=== PATIENT | female | born 1980 ===

== ENCOUNTER 2018-05-29 12:22 | Inpatient (IN) | payer MEDICAID, SELFPAY ==
[2018-05-29 12:43] VITALS: BMI 31.4
[2018-05-29] MEDS ORDERED: ceFAZolin 2 GM in Sodium Chloride 0.9% 100 ML IVPB ONE (12:44)
[2018-05-29] MEDS ORDERED: Oxytocin 30 UNIT 30 UNITS/500 ML BAG IV ONE ×2 (12:49→15:36)
[2018-05-29] MEDS: Lactated Ringer's 1,000 ML IV ONE ×2 (12:55→13:35)
[2018-05-29] MEDS ORDERED: ePHEDrine 50 mg/ml Inj ONE (13:22)
[2018-05-29] MEDS ORDERED: Morphine 1 mg/ml preservative-free Inj(Duramorph) ONE (13:22)
--- NOTE | 2018-05-29 13:22 | OBADHP ---
Datetime: 05/29/2018 13:08 Admit Comment, IP Provider: 37yo at 39 wks with history of intermittent tachycardia presents f or repeat csection today. Patient denies regular contractions, no vaginal bleeding or leakage of flui ds. movement present. Patient had echocardiogram on 05/28 which showed tachycardia and hyperdyna roseanne heart. HR today 105 and patient asymptomatic. Patient with UTI started Keflex. O negative s/p Rhogam GBS negative HIV and RPR- NR Glucola wnl A/P IUP at 39 wks with h/o previous csection x 2 --Initiate csection protocol --Patient for for repeat csection with BTL --Ancef 2gm IV now Pelvic Type - PN: Adequate Extremities - PN: Normal Abdomen - PN: Normal Back - PN: Normal Breast - PN: Normal Lungs - PN: Normal Heart - PN: Normal Thyroid - PN: Normal Neurologic - PN: Normal HEENT - PN: Normal General - PN: Normal IP Chief Complaint: Scheduled Section; Maternal discomfort Genitourinary Exam: Normal DTRs - PN: Normal IP Adm Impression: Term, intrauterine IP Admit Plan: Admit to unit; Initiate Section protocol
[2018-05-29] MEDS ORDERED: Sodium Chloride 0.9% 10 ML IV ONE (13:23)
[2018-05-29] MEDS ORDERED: OXYTOCIN/0.9 % NS 20 UNIT/1,000 ML BAG IV SCH (14:00)
[2018-05-29 14:12] LABS: BASO % 0.2 % (0.0-2.0); EOS # 0.1 K/uL (0.0-0.7); EOS % 0.9 % (0.0-4.0); LYMPH # 2.2 K/uL (1.0-4.3); LYMPH % 20.3 % (20.0-40.0); MEAN CORPUSCULAR HGB CONC 32.9 g/dL (33.0-37.0); MEAN PLATELET VOLUME 9.8 fl (7.2-11.7); MONO # 0.6 K/uL (0.0-0.8); MONO % 5.2 % (0.0-10.0); NEUT # 7.8 K/uL (1.8-7.0); NEUT % 73.4 % (50.0-75.0); NRBC % 0.1 % (0.0-0.0); RBC 4.63 Mil/uL (3.80-5.20); RED CELL DISTRIBUTION WIDTH 15.4 % (11.5-14.5); WHITE BLOOD COUNT 10.7 K/uL (4.8-10.8)
[2018-05-29] MEDS ORDERED: Cellulose Hemostat 2X3 Sheet ONE (15:43)
[2018-05-29] MEDS ORDERED: Propofol 10 mg/ml Inj (20 ML) ONE (15:59)
[2018-05-29] MEDS ORDERED: Oxycodone/Acetaminophen 5/325 mg Tab PO PRN ×3 (16:40→20:30)
[2018-05-29] MEDS ORDERED: Morphine 5 MG/ML SYRINGE IV PRN (16:46)
[2018-05-29] MEDS ORDERED: Naloxone 0.4 mg/ml Inj (Adult) IVP PRN ×2 (16:46→20:30)
[2018-05-29] MEDS ORDERED: DiphenhydrAMINE 50 mg/ml Inj IVP PRN ×2 (16:46→20:30)
--- NOTE | 2018-05-29 16:51 | OBDS ---
DELIVERY PERSONNEL Delivery Doctor: Sybil Lambert MD Food Consultant: JMcCartyRYvonne/MBorreoRN Anesthesiologist: Dr Boyer MATERNAL INFORMATION Delivery Anesthesia: Spinal Medications in Delivery: Ancef 2G Placenta Cultured: No Provider Comments: See operative report LABOR SUMMARY EDC: 06/04/2018 00:00 No. Babies in Womb: 1 Attempted: No Labor Anesthesia: None LABOR INFORMATION Reason for Induction: Not Applicable Oxytocin: N/A Group B Beta Strep: Negative Antibiotics # of Doses: Ancef 2 gram Antibiotics Time of Last Dose: 1420 Steroids Given: None Reason Steroids Not Administered: Not Applicable STAGES OF LABOR Stage 3 hrs: 0 Stage 3 min: 1 CSECTION DELIVERY Primary Indication: repeat C-S with BTL CSection Urgency: Elective CSection Incidence: Repeat Labor: N/A CSection Incision: Lower Uterine Transverse BABY A INFORMATION Infant Delivery Date/Time: 05/29/2018 15:23 Method of Delivery: Born in Route : No : N/A Forceps: N/A Vacuum Extraction: N/A Shoulder Dystocia : No SHOULDER DYSTOCIA BABY A Delivery Date/Time: 05/29/2018 15:23 PRESENTATION/POSITION BABY A Presentation: Cephalic PLACENTA INFORMATION BABY A Placenta Delivery Time : 05/29/2018 15:24 Placenta Method of Delivery: Manual Removal Placenta Status: Delivered SCORES BABY A Heart Rate 1 min: >100 bpm Resp Effort 1 min: Good Cry Reflex Irritability 1 min: Cough or Sneeze or Pulls Away Muscle Tone 1 min: Active Motion Color 1 min: Body [place], Extremities Blue Resuscitation Effort 1 min: N/A SCORE 1 MIN: 9 Heart Rate 5 min: >100 bpm Resp Effort 5 min: Good Cry Reflex Irritability 5 min: Cough or Sneeze or Pulls Away Muscle Tone 5 min: Active Motion Color 5 min: Body [place], Extremities Blue Resuscitation Effort 5 min: N/A SCORE 5 MIN: 9 INFORMATION BABY A Gestational Age at Delivery: 39.0 Gestational Status: Term Outcome : Liveborn Infant Condition : Stable Infant Sex: Male IDENTIFICATION/MEDS BABY A ID Band Number: [id number] ID Band Location: Left Leg; Left Arm Vitamin K Given : Not Given Erythromycin Given: Not Given WEIGHT/LENGTH BABY A Birthweight (gms): 3560 Infant Weight (lb): 7 Weight (oz): 14 CORD INFORMATION BABY A No. Cord Vessels: 3 Infant Cord pH Baby Arterial: n/a Cord pH Baby Venous: n/a Cord Blood Taken: Yes Banking/Donate Info: n/a
[2018-05-30] MEDS: Multivitamin With Minerals Tab PO SCH (08:59)
[2018-05-30] MEDS: Prenatal Multivit/Folic Acid/Iron Tab PO SCH (08:59)
[2018-05-30] MEDS ORDERED: Multivitamin With Minerals Tab PO SCH (09:00)
[2018-05-30] MEDS ORDERED: Prenatal Multivit/Folic Acid/Iron Tab PO SCH (09:00)
[2018-05-30] MEDS ORDERED: Influenza Vaccine (5 YR UP)/PF 60 MCG/0.5 ML SYR IM ONE (10:00)
[2018-05-30 15:00] LABS: HEMOGLOBIN 10.8 g/dL (12.0-16.0); MEAN CORPUSCULAR HEMOGLOBIN 27.8 pg (27.0-31.0); MEAN CORPUSCULAR HGB CONC 33.1 g/dL (33.0-37.0); RBC 3.87 Mil/uL (3.80-5.20); RED CELL DISTRIBUTION WIDTH 15.5 % (11.5-14.5)
[2018-05-30] MEDS: Oxycodone/Acetaminophen 5/325 mg Tab PO PRN (23:52)
[2018-05-31] MEDS: Prenatal Multivit/Folic Acid/Iron Tab PO SCH (08:43)
[2018-05-31] MEDS: Multivitamin With Minerals Tab PO SCH (08:43)
[2018-05-31] MEDS: Oxycodone/Acetaminophen 5/325 mg Tab PO PRN ×2 (08:44→21:36)
--- NOTE | 2018-05-31 18:09 | OBPPN ---
Datetime: 05/31/2018 07:47 PP Pain Prov: Within normal limits PP Nausea Prov: Denies PP Flatus Prov: Yes PP BM Prov: Yes PP Breasts Prov: Normal PP Heart Prov: Normal PP Lungs Prov: Normal PP Abdomen/Uterus Prov: Normal PP Lochia Prov: Normal PP Vulva/Perineum Prov: Not Done PP CVA Tenderness Prov: Not Done PP Extremities Prov: Normal PP C/S Incision Prov: Normal PP Progress Prov: Normal PP Impression Prov: Normal progression PP Plan Prov: Continue present management PP Progress Note Prov: S: 37 YO , POD2 s/p on 05/29/18. Patient is doing well this AM, family and baby present by bedside. Ambulating to the bathroom and in the hallway without difficultie s. Mild abdominal pain but well controlled with PO pain meds. Vaginal bleeding is like menses now. +f latus/+BM. Good PO intake. ROS: Denies chest pain, dyspnea, n/v/d/c, fever, chills, vomiting. O: VS: Vitals reviewed, afebrile GEN: looks comfortable, laying down in bed HEENT: EMOI, no pallor H: S1S2 no additional heart sounds L: Clear breath sounds b/l A: soft, fundus below umbilicus-firm, BS+, stoney and incision intact, no erythema, edema or exud ates noted. N: Awake and alert, preserved mood and effect. E: no edema noted, neg calf tenderness A/P: 37 YO @39wks IUP, s/p . Gave to a baby boy on 05/29/18. Doing well POD2. Desire s Circ for baby. -c/w diet as tolerated -SCDs and ambulating for DVT prophylaxis -cont pain management as needed -encouraged to ambulate as tolerated and continue Annamarie Olvera, PGY II OB Hospitalist on-call. With PGY2, I saw patient. Agree wih note... MAHNDO Rh neg - given Rhogam May 30 Vital Signs Provider PP: Reviewed; Within Normal Limits
[2018-06-01] MEDS: Prenatal Multivit/Folic Acid/Iron Tab PO SCH (08:47)
--- NOTE | 2018-06-01 10:15 | OBPPN ---
Datetime: 06/01/2018 06:11 PP Pain Prov: Within normal limits PP Nausea Prov: Denies PP Flatus Prov: Yes PP BM Prov: No PP Breasts Prov: Not Done PP Heart Prov: Normal PP Lungs Prov: Normal PP Abdomen/Uterus Prov: Normal PP Lochia Prov: Normal PP Vulva/Perineum Prov: Not Done PP CVA Tenderness Prov: Not Done PP Extremities Prov: Not Done PP C/S Incision Prov: Normal PP Impression Prov: Normal progression PP Plan Prov: Discharge PP Progress Note Prov: S: 37 yo female s/p on 05/29/2018 at 15:23. Pt. is seen and exa mined at bedside this AM. No overnight events. Pt reports mild abdominal pain, but well controlled wi th pain meds. D/c olsen, dressing removed, incision site healing well, no exudate seen, dry and intac t. No nausea, advised to advance diet as tolerated. Breast feeding and bottle feeding the baby. Lochi a is similar to menses volume. No bowel movement, but passing gas per rectum. Denies fever/chills, di arrhea, nausea/vomiting, chest pain, dyspnea, and dizziness. O: VS: stable GEN: NAD Cardio: S1S2, no murmurs Lungs: clear breath sounds b/l, no wheezing Abdomen: BS+, tenderness to palpation. Incision scar noted, well healing with no exudate seen, dry and intact. Uterus is firm and at the level of the umbilicus. EXT: No edema, calves nontender NEURO/PSYCH: AAOx3, no grossly focal deficits, preserved affect and mood. Assessment/Plan: 37 yo s/p on 05/29/2018. Pt remains afebrile, tolerating pain with medication, doing well on POD#3. OOB with caution SCDs for DVT prophylaxis, encouraged ambulating Percocet 5/325mg, and Motrin 600mg for pain. Colace 100mg PO BID for constipation Encourage and ambulating CBC post op- 10.8/32.5 Regular diet Anticipated d/c to home, 06/01/2018. --- Johanny Aguiar MD PGY1 Patient seen and examined by me this am. Agree with above resident note. Patient for discharge rob e today.Rx given for Motrin. Patient to rtc 06/03 for incision check and contraceptive counseling. Co ntinue pelvic rest. --Dr. Lambert IP PP Procedures: None
[2018-06-01] MEDS: Multivitamin With Minerals Tab PO SCH (10:54)
[2018-06-01 18:10] VITALS: BP 104/63; PULSE 83; RESP 20; TEMP 97.9; O2SAT 100
--- NOTE | 2018-06-01 21:26 | OP ---
DATE: 05/29/2018 PREOPERATIVE DIAGNOSES: Previous section, 39 weeks' gestation, intermittent tachycardia. POSTOPERATIVE DIAGNOSES: Previous section, 39 weeks' gestation, intermittent tachycardia, delivered. PROCEDURE: Repeat low transverse section with lysis of adhesions. SURGEON: Yasmin Hopkins MD. CHARGE LPN: Yoni Hall MD ESTIMATED BLOOD LOSS: 1000 mL. INTRAVENOUS FLUIDS: 1500 mL lactated Ringer's. URINE OUTPUT: 500 mL clear at the end of the procedure. FINDINGS: A live male with Apgars of 9 and 9, weight 7 pounds 14 ounces, delivered in vertex presentation. Amniotic fluid clear. Dense adhesions seen of uterus to anterior abdominal wall and surrounded the adnexa bilaterally. DESCRIPTION OF PROCEDURE: The patient was taken to the operating room and given spinal anesthesia without difficulty. She was then prepped and draped in the dorsal supine position with a leftward tilt. A Pfannenstiel skin incision was made with the scalpel through the previous scar and carried through to the underlying fascia. The fascia was incised in midline and extended laterally using the Bovie. The inferior aspect of the fascial incision was then grasped with Keri clamps, elevated, and the underlying rectus muscles were dissected off sharply with the Bovie, then bluntly. Attention was then turned to the superior aspect of the fascial incision, which in a similar fashion was dissected sharply with the Bovie, then bluntly. The rectus muscles were then meticulously in the midline. At this time, dense adhesions were noted of the uterus to the anterior abdominal wall. These were taken down using the cautery and the Metzenbaum scissors. Removal of the dense adhesions then revealed the lower uterine segment, this was then incised in a transverse fashion with the scalpel, and this incision was then extended cephalocaudally bluntly. The membranes were then ruptured and the infant was delivered in vertex presentation atraumatically. The nose and mouth were suctioned on the abdomen. The cord was doubly clamped and cut, and the infant was handed off to the awaiting monument setter. Cord blood was then taken. The placenta was extracted manually and intact. The uterus was unable to be exteriorized due to the dense adhesions surrounding the uterus, fundus, and adnexa. The uterus was cleared of all clots and debris and the incision was closed with 1 Vicryl in a running-locked fashion. Four further [id number] sutures were then placed, followed by Surgicel and good hemostasis was noted. Copious irrigation was performed. An attempt was made to free the adnexa. If the patient is tired, a tubal ligation, but dense adhesions were seen throughout around the adnexa bilaterally, these were unable to be freed and this procedure could not be performed. The peritoneal muscles were re-approximated together in a running fashion using a 2-0 Vicryl suture. The fascia was re-approximated using 0 Vicryl in a running fashion bilaterally to the midline and the skin was closed with stoney and covered with a sterile dressing. The patient tolerated the procedure well. Sponge, lap, and needle counts were all correct x4. Ancef 2 g were given preoperatively. The patient will be continued on Keflex postoperatively as the patient had UTI. The patient was transferred to the recovery room in stable condition. There was no injury to the bladder, bowel, ureter, or baby. Postoperatively, the patient was informed that due to dense adhesions and multiple scar tissue, the bilateral ligation was unable to be performed. She was informed to continue pelvic rest until seen in the office, at which time further options will be discussed regarding contraceptive care. Due to the nature of this case, an food and beverage assistant was requested and my food and beverage assistant, Dr. Hall was present for the entire procedure from the initial incision to the patient's transfer to the recovery room. He assisted with taking down the dense adhesions, delivery of the baby, and providing great exposure to minimize blood loss. The procedure could not be performed without assistance. Yasmin Hopkins MD
== END 2018-06-01 13:05 | disposition home or self-care (01) | DRG 788 ==
LOC: H.EROB2 12:22 → H.L&D 13:02 → H.OB/GYN 18:58
PROVIDERS: ADMIT Obstetrics & Gynecology; ATTEND Obstetrics & Gynecology
PROC: 10D00Z1 Extraction of Products of Conception, Low, Open Approach (ICD-10-PCS; principal; 2018-05-29)
PROC: 4A1HXCZ Monitoring of Products of Conception, Cardiac Rate, External Approach (ICD-10-PCS; 2018-05-29)
DX: O34.211 Maternal care for low transverse scar from previous cesarean delivery (principal); N85.8 Other specified noninflammatory disorders of uterus; Z37.0 Single live birth; Z3A.39 39 weeks gestation of pregnancy; K66.0 Peritoneal adhesions (postprocedural) (postinfection)